=== PATIENT | female | born 1935 | race Caucasian/White ===

== ENCOUNTER 2021-10-23 18:11 | Emergency (ER) | payer MEDICARE, BC ==
--- NOTE | 2021-10-23 18:08 | CT ---
PROCEDURE INFORMATION: Exam: CT Head Without Contrast Exam date and time: 10/23/2021 6:00 PM Age: 86 years old Clinical indication: Speech disturbance; Slurred speech; Additional info: Stroke code: Slurred speech, recurrent falls TECHNIQUE: Imaging protocol: Computed tomography of the head without contrast. Radiation optimization: All CT scans at this facility use at least one of these dose optimization techniques: automated exposure control; mA and/or kV adjustment per patient size (includes targeted exams where dose is matched to clinical indication); or iterative reconstruction. Other technique: STROKE PROTOCOL was implemented. COMPARISON: CT HEAD 07/31/2007 2:24 PM FINDINGS: Brain: Age-related atrophy and chronic white matter ischemic changes, with no evidence of an acute intracranial abnormality. No hemorrhage, mass effect or midline shift. A 1 cm nodule is noted along the anterior falx on the left and may represent a meningioma. Further evaluation with MRI of the brain is recommended. Cerebral ventricles: No ventriculomegaly. Paranasal sinuses: Visualized sinuses are unremarkable. No fluid levels. Mastoid air cells: Visualized mastoid air cells are well aerated. Bones/joints: No acute fracture. Soft tissues: No acute changes IMPRESSION: 1. Age-related atrophy and chronic white matter ischemic changes, with no evidence of an acute intracranial abnormality. 2. No hemorrhage, mass effect or midline shift. 3. A 1 cm nodule is noted along the anterior falx on the left and may represent a meningioma. Further evaluation with MRI of the brain is recommended. ASSESSMENT: ASPECTS ([place] Stroke Program Early CT Score) is 10.
[2021-10-23] MEDS ORDERED: Sodium Chloride 0.9% 10 ML Syringe FLUSH PRN (18:13)
[2021-10-23 18:31] VITALS: BP 226/109; PULSE 90
--- NOTE | 2021-10-23 18:33 | CR ---
PROCEDURE INFORMATION: Exam: XR Chest Exam date and time: 10/23/2021 6:23 PM Age: 86 years old Clinical indication: Other: Possible aspiration; Additional info: CVA, poss. Aspiration TECHNIQUE: Imaging protocol: XR of the chest. Views: 1 view. COMPARISON: No relevant prior studies available. FINDINGS: Lungs: Bilateral hyperinflation is present. No focal pneumonia or pneumothorax. Pleural spaces: There are no pleural effusions present. Heart/Mediastinum: Unremarkable. No cardiomegaly. Vasculature: The vasculature demonstrates diffuse mild atherosclerotic calcification. Bones/joints: The thoracic spine demonstrates mild degenerative changes at multiple levels. IMPRESSION: 1. Bilateral hyperinflation is present. 2. No focal pneumonia or pneumothorax.
[2021-10-23 18:44] LABS: CHLORIDE,CL 99 mmol/L (98-107); SODIUM,NA 137 mmol/L (136-145)
[2021-10-23 18:45] LABS: PTT,PARTIAL THROMBOPLSTIN TIME 23.9 SEC (22.0-34.0)
--- NOTE | 2021-10-23 19:07 | CT ---
PROCEDURE INFORMATION: Exam: CT Pelvis Without Contrast; Skeletal Exam date and time: 10/23/2021 6:33 PM Age: 86 years old Clinical indication: Hip pain and pelvic pain; Right hip; Additional info: Fall, pain overlying RT pubic rami TECHNIQUE: Imaging protocol: Computed tomography images of the pelvis without contrast. Exam focused on the skeletal structures. Radiation optimization: All CT scans at this facility use at least one of these dose optimization techniques: automated exposure control; mA and/or kV adjustment per patient size (includes targeted exams where dose is matched to clinical indication); or iterative reconstruction. COMPARISON: No relevant prior studies available. FINDINGS: Bones/joints: Angulated comminuted right femoral neck fracture. Old inferior sacral fracture Soft tissues: Unremarkable. IMPRESSION: Right hip fracture
--- NOTE | 2021-10-23 19:18 | EDM.PDOC ---
Scribed by Krista Duffy 10/23/21 1828 for Yannick Alvarado MD <Yannick Alvarado - Last Filed: 10/23/21 19:09> ED HPI GENERAL MEDICAL PROBLEM - General Chief Complaint: Neuro Symptoms/Deficits Stated Complaint: AMBULANCE/ STROKE Time Seen by Provider: 10/23/21 18:11 Source of Information: Reports: Patient, EMS, EMS Notes Reviewed, RN, RN Notes Reviewed - History of Present Illness INITIAL COMMENTS - FREE TEXT/NARRATIVE: Patient arrives to ED by [facility] with EMS calling "Stroke Code" due to slurred speech. Pt states that she felt well today, but slipped and missed a step and fell this morning. She got herself back into her apartment, but now cannot bear wt on the right leg due to groin pain. Pt states the only slurred speech she had is that she cannot seem to say, "Kathy" correctly. Denies headache, chest pain, aphasia, difficulty swallowing, blurred vision, or motor weakness. Onset: Today Duration: Constant Quality: Reports: Ache Severity: Moderate Improves with: Reports: Immobilization Worsens with: Reports: Movement Associated Symptoms: Reports: No Other Symptoms Right Upper Leg Pain Score (Numeric/FACES): 0 - Related Data Allergies Allergy/AdvReac Type Severity Reaction Status Date / Time No Known Allergies Allergy Verified 10/23/21 18:17 Home Meds: Home Meds Aspirin 1 tab PO DAILY 01/02/15 [History] Estrogens, Conjugated [Premarin] 1 tab PO DAILY 01/02/15 [History] Hydrochlorothiazide/Lisinopril [Lisinopril-HCTZ 20-25 MG] 1 tab PO DAILY 01/02/15 [History] LORazepam [Ativan] 1 tab PO DAILY PRN 01/02/15 [History] Levothyroxine Sodium 1 tab PO DAILY 01/02/15 [History] Past Medical History HEENT History: Reports: Impaired Vision Cardiovascular History: Reports: Hypertension Neurological History: Reports: TIA Psychiatric History: Reports: Anxiety Endocrine/Metabolic History: Reports: Hypothyroidism Social & Family History - Family History Family Medical History: No Pertinent Family History - Living Situation & Occupation Living situation: Reports: , Alone Occupation: Retired ED ROS GENERAL - Review of Systems Review Of Systems: Comprehensive ROS is negative, except as noted in HPI. ED EXAM, NEURO - Physical Exam Exam: See Below Exam Limited By: No Limitations General Appearance: Alert, WD/WN, No Apparent Distress Eye Exam: Bilateral Eye: EOMI, Normal Inspection, PERRL Ears: Normal External Exam, Hearing Grossly Normal Nose: Normal Inspection, Normal Mucosa, No Blood Throat/Mouth: Normal Inspection, Normal Lips, Normal Teeth, Normal Gums, Normal Oropharynx, Normal Voice, No Airway Compromise Head Exam: Atraumatic, Normocephalic Neck: Normal Inspection, Supple, Non-Tender, Full Range of Motion Respiratory/Chest: No Respiratory Distress, Lungs Clear, Normal Breath Sounds, No Accessory Muscle Use, Chest Non-Tender Cardiovascular: Normal Peripheral Pulses, Regular Rate, Rhythm GI/Abdominal: Normal Bowel Sounds, Soft, Non-Tender Neurological: Alert, Normal Dorsiflexion, CN II-XII Intact, Normal Plantar Flexion, No Motor/Sensory Deficits, Oriented x 3 Back Exam: Normal Inspection Extremities: Normal Capillary Refill, Limited Range of Motion (Rt hip with pain to palpation overlying Rt pubic rami region). No: Joint Swelling, Increased Warmth, Redness Psychiatric: Normal Mood Skin Exam: Warm, Dry, Intact, Normal Color, No Rash #1 Interpretation EKG Date: 10/23/21 Time: 18:28 Rhythm: Other (SR) Rate (Beats/Min): 86 [place]: LAD-Left Beth[place] Deviation P-Wave: Present QRS: Other (Old anterior and inferior Q waves) ST-T: Normal QT: Normal Comparison: NA - No Prior EKG Course - Re-Assessments/Exams Free Text/Narrative Re-Assessment/Exam: 10/23/21 19:18 Care of pt transferred to Shirin Mccarthy at shift change. Departure - Departure Disposition: DC/Tfer to [facility] 02 Clinical Impression: Fall (on) (from) other stairs and steps, initial encounter, Hypokalemia Fractured femoral neck Qualifiers: Encounter type: initial encounter Fracture type: closed Laterality: right Qualified Code(s): S72.001A - Fracture of unspecified part of neck of right femur, initial encounter for closed fracture - Discharge Information Forms: ED Department Discharge <Winsome Otero - Last Filed: 10/23/21 20:38> ED HPI GENERAL MEDICAL PROBLEM - History of Present Illness INITIAL COMMENTS - FREE TEXT/NARRATIVE: Patient reports fall at 4 pm today just prior to evening news . Was going down to get mail and missed last step fell landing more on left side. States able to get up and walk back up the 8 stairs to her apartment but had increasing pain. Denied any loss of consciousness or other injury with fall. ED EXAM, NEURO - Physical Exam Extremities: Other (right groin pain with movement) Course - Vital Signs Last Recorded V/S: Last Vital Signs Temp 97.7 F 10/23/21 18:11 Pulse 90 10/23/21 18:11 Resp 16 10/23/21 18:11 BP 226/109 H 10/23/21 18:11 Pulse Ox 96 10/23/21 18:11 - Orders/Labs/Meds Orders: Active Orders 24 hr Category Date Time Status Blood Glucose Check, Bedside [RC] ONETIME Care 10/23/21 18:12 Active NIH Stroke Scale [RC] ASDIRECTED Care 10/23/21 18:11 Active Peripheral IV Care [RC] . DIRECTED Care 10/23/21 18:13 Active Potassium Chloride [KCL in Water 20 MEQ/100 ML] 20 meq Med 10/23/21 19:39 Active Premix Bag 1 bag IV ONETIME Sodium Chloride 0.9% [Normal Saline] 1,000 ml Med 10/23/21 19:39 Active IV .BOLUS Sodium Chloride 0.9% [Saline Flush] Med 10/23/21 18:13 Active 10 ml FLUSH ASDIRECTED PRN Peripheral IV Insertion Adult [OM.PC] Stat Oth 10/23/21 18:13 Ordered Code Status [Resuscitation Status] Stat Resus Stat 10/23/21 20:07 Ordered Medication Orders Potassium Chloride 20 meq/ (Premix) 100 mls @ 50 mls/hr IV ONETIME ONE Stop: 10/23/21 21:38 Last Admin: 10/23/21 19:53 Dose: 50 mls/hr Documented by: BALLNOR Sodium Chloride (Normal Saline) 1,000 mls @ 50 mls/hr IV .BOLUS ONE Stop: 10/24/21 15:38 Last Admin: 10/23/21 19:53 Dose: 50 mls/hr Documented by: BALLNOR Sodium Chloride (Sodium Chloride 0.9% 10 Ml Syringe) 10 ml FLUSH ASDIRECTED PRN PRN Reason: Keep Vein Open Last Admin: 10/23/21 18:11 Dose: 10 ml Documented by: PAULINA Labs: Laboratory Tests 10/23/21 10/23/21 10/23/21 Range/Units 18:12 18:12 18:12 WBC 13.5 H (5.0-10.0) 10^3/uL RBC 4.45 (4.2-5.4) 10^6/uL Hgb 11.9 L (12.0-16.0) g/dL Hct 37.2 (37.0-47.0) % MCV 83.6 (80-100) fL MCH 26.7 L (27.0-34.0) pg MCHC 32.0 L (33.0-35.0) g/dL Plt Count 286 (150-450) 10^3/uL Neut % (Auto) 90.7 H (42.2-75.2) % Lymph % (Auto) 4.6 L (20.5-50.1) % Starr % (Auto) 4.4 (2-8) % Eos % (Auto) 0.2 L (1.0-3.0) % Baso % (Auto) 0.1 (0.0-1.0) % PT 10.4 (9.0-12.0) SEC INR 1.0 (0.9-1.2) APTT 23.9 (22.0-34.0) SEC Sodium 137 (136-145) mmol/L Potassium 3.0 L (3.5-5.1) mmol/L Chloride 99 (98-107) mmol/L Carbon Dioxide 26 (21-32) mmol/L Anion Gap 15.0 H (7-13) mEq/L BUN 21 H (7-18) mg/dL Creatinine 1.04 H (0.55-1.02) mg/dL Est Cr Clr Drug Dosing TNP Estimated GFR (MDRD) 50 BUN/Creatinine Ratio 20.2 (No establ ref range) Glucose 118 H (70-99) mg/dL POC Glucose (70-99) mg/dL Lactic Acid (0.4-2.0) mmol/L Calcium 8.9 (8.5-10.1) mg/dL Magnesium 1.9 (1.8-2.4) mg/dL Total Bilirubin 0.7 (0.2-1.0) mg/dL AST 25 (15-37) U/L ALT 30 (14-59) U/L Alkaline Phosphatase 111 (46-116) U/L Troponin I High Sens 72 H* (<=51) pg/mL C-Reactive Protein < 0.2 (0.0-0.9) mg/dL Total Protein 7.7 (6.4-8.2) g/dL Albumin 3.6 (3.4-5.0) g/dL Globulin 4.1 Albumin/Globulin Ratio 0.9 Urine Color (YELLOW) Urine Appearance (CLEAR) Urine pH (5.0-9.0) Ur Specific [place] (1.005-1.030) Urine Protein (NEGATIVE) Urine Glucose (UA) (NEGATIVE) Urine Ketones (NEGATIVE) Urine Occult Blood (NEGATIVE) Urine Nitrite (NEGATIVE) Urine Bilirubin (NEGATIVE) Urine Urobilinogen (0.2-1.0) mg/dL Ur Leukocyte Esterase (NEGATIVE) U Hyaline Cast (Auto) Urine RBC (0-5) /HPF Urine WBC (0-5/HPF) /HPF Ur Epithelial Cells (NOT SEEN) /HPF Urine Bacteria (0-FEW/HPF) /HPF Urine Mucus (NOT SEEN) /LPF Urine Opiates Screen (NEGATIVE) Ur Oxycodone Screen (NEGATIVE) Urine Methadone Screen (NEGATIVE) Ur Barbiturates Screen (NEGATIVE) U Tricyclic Antidepress (NEGATIVE) Ur Phencyclidine Scrn (NEGATIVE) Ur Amphetamine Screen (NEGATIVE) U Methamphetamines Scrn (NEGATIVE) Urine MDMA Screen (NEGATIVE) U Benzodiazepines Scrn (NEGATIVE) Urine Cocaine Screen (NEGATIVE) U Marijuana (THC) Screen (NEGATIVE) Ethyl Alcohol < 3 (0) mg/dL SARS-CoV-2 RNA (LEILANI) (NEGATIVE) 10/23/21 10/23/21 10/23/21 Range/Units 18:12 18:50 19:00 WBC (5.0-10.0) 10^3/uL RBC (4.2-5.4) 10^6/uL Hgb (12.0-16.0) g/dL Hct (37.0-47.0) % MCV (80-100) fL MCH (27.0-34.0) pg MCHC (33.0-35.0) g/dL Plt Count (150-450) 10^3/uL Neut % (Auto) (42.2-75.2) % Lymph % (Auto) (20.5-50.1) % Starr % (Auto) (2-8) % Eos % (Auto) (1.0-3.0) % Baso % (Auto) (0.0-1.0) % PT (9.0-12.0) SEC INR (0.9-1.2) APTT (22.0-34.0) SEC Sodium (136-145) mmol/L Potassium (3.5-5.1) mmol/L Chloride (98-107) mmol/L Carbon Dioxide (21-32) mmol/L Anion Gap (7-13) mEq/L BUN (7-18) mg/dL Creatinine (0.55-1.02) mg/dL Est Cr Clr Drug Dosing Estimated GFR (MDRD) BUN/Creatinine Ratio (No establ ref range) Glucose (70-99) mg/dL POC Glucose 118 H (70-99) mg/dL Lactic Acid 0.7 (0.4-2.0) mmol/L Calcium (8.5-10.1) mg/dL Magnesium (1.8-2.4) mg/dL Total Bilirubin (0.2-1.0) mg/dL AST (15-37) U/L ALT (14-59) U/L Alkaline Phosphatase (46-116) U/L Troponin I High Sens (<=51) pg/mL C-Reactive Protein (0.0-0.9) mg/dL Total Protein (6.4-8.2) g/dL Albumin (3.4-5.0) g/dL Globulin Albumin/Globulin Ratio Urine Color (YELLOW) Urine Appearance (CLEAR) Urine pH (5.0-9.0) Ur Specific [place] (1.005-1.030) Urine Protein (NEGATIVE) Urine Glucose (UA) (NEGATIVE) Urine Ketones (NEGATIVE) Urine Occult Blood (NEGATIVE) Urine Nitrite (NEGATIVE) Urine Bilirubin (NEGATIVE) Urine Urobilinogen (0.2-1.0) mg/dL Ur Leukocyte Esterase (NEGATIVE) U Hyaline Cast (Auto) Urine RBC (0-5) /HPF Urine WBC (0-5/HPF) /HPF Ur Epithelial Cells (NOT SEEN) /HPF Urine Bacteria (0-FEW/HPF) /HPF Urine Mucus (NOT SEEN) /LPF Urine Opiates Screen Negative (NEGATIVE) Ur Oxycodone Screen Negative (NEGATIVE) Urine Methadone Screen Negative (NEGATIVE) Ur Barbiturates Screen Negative (NEGATIVE) U Tricyclic Antidepress Negative (NEGATIVE) Ur Phencyclidine Scrn Negative (NEGATIVE) Ur Amphetamine Screen Negative (NEGATIVE) U Methamphetamines Scrn Negative (NEGATIVE) Urine MDMA Screen Negative (NEGATIVE) U Benzodiazepines Scrn Positive H (NEGATIVE) Urine Cocaine Screen Negative (NEGATIVE) U Marijuana (THC) Screen Negative (NEGATIVE) Ethyl Alcohol (0) mg/dL SARS-CoV-2 RNA (LEILANI) (NEGATIVE) 10/23/21 10/23/21 Range/Units 19:00 19:16 WBC (5.0-10.0) 10^3/uL RBC (4.2-5.4) 10^6/uL Hgb (12.0-16.0) g/dL Hct (37.0-47.0) % MCV (80-100) fL MCH (27.0-34.0) pg MCHC (33.0-35.0) g/dL Plt Count (150-450) 10^3/uL Neut % (Auto) (42.2-75.2) % Lymph % (Auto) (20.5-50.1) % Starr % (Auto) (2-8) % Eos % (Auto) (1.0-3.0) % Baso % (Auto) (0.0-1.0) % PT (9.0-12.0) SEC INR (0.9-1.2) APTT (22.0-34.0) SEC Sodium (136-145) mmol/L Potassium (3.5-5.1) mmol/L Chloride (98-107) mmol/L Carbon Dioxide (21-32) mmol/L Anion Gap (7-13) mEq/L BUN (7-18) mg/dL Creatinine (0.55-1.02) mg/dL Est Cr Clr Drug Dosing Estimated GFR (MDRD) BUN/Creatinine Ratio (No establ ref range) Glucose (70-99) mg/dL POC Glucose (70-99) mg/dL Lactic Acid (0.4-2.0) mmol/L Calcium (8.5-10.1) mg/dL Magnesium (1.8-2.4) mg/dL Total Bilirubin (0.2-1.0) mg/dL AST (15-37) U/L ALT (14-59) U/L Alkaline Phosphatase (46-116) U/L Troponin I High Sens (<=51) pg/mL C-Reactive Protein (0.0-0.9) mg/dL Total Protein (6.4-8.2) g/dL Albumin (3.4-5.0) g/dL Globulin Albumin/Globulin Ratio Urine Color Yellow (YELLOW) Urine Appearance Clear (CLEAR) Urine pH 7.5 (5.0-9.0) Ur Specific [place] 1.020 (1.005-1.030) Urine Protein 100 H (NEGATIVE) Urine Glucose (UA) Negative (NEGATIVE) Urine Ketones Negative (NEGATIVE) Urine Occult Blood Trace-intact H (NEGATIVE) Urine Nitrite Negative (NEGATIVE) Urine Bilirubin Negative (NEGATIVE) Urine Urobilinogen 0.2 (0.2-1.0) mg/dL Ur Leukocyte Esterase Negative (NEGATIVE) U Hyaline Cast (Auto) Rare Urine RBC 10-20 H (0-5) /HPF Urine WBC 0-5 (0-5/HPF) /HPF Ur Epithelial Cells Rare (NOT SEEN) /HPF Urine Bacteria Rare (0-FEW/HPF) /HPF Urine Mucus Rare (NOT SEEN) /LPF Urine Opiates Screen (NEGATIVE) Ur Oxycodone Screen (NEGATIVE) Urine Methadone Screen (NEGATIVE) Ur Barbiturates Screen (NEGATIVE) U Tricyclic Antidepress (NEGATIVE) Ur Phencyclidine Scrn (NEGATIVE) Ur Amphetamine Screen (NEGATIVE) U Methamphetamines Scrn (NEGATIVE) Urine MDMA Screen (NEGATIVE) U Benzodiazepines Scrn (NEGATIVE) Urine Cocaine Screen (NEGATIVE) U Marijuana (THC) Screen (NEGATIVE) Ethyl Alcohol (0) mg/dL SARS-CoV-2 RNA (LEILANI) Negative (NEGATIVE) Meds: Medications Generic Name Dose Route Start Last Admin Trade Name Freq PRN Reason Stop Dose Admin Potassium Chloride 20 meq/ 100 mls @ 50 mls/hr 10/23/21 19:39 10/23/21 19:53 Premix IV 10/23/21 21:38 50 mls/hr ONETIME ONE Administration Sodium Chloride 1,000 mls @ 50 mls/hr 10/23/21 19:39 10/23/21 19:53 Normal Saline IV 10/24/21 15:38 50 mls/hr .BOLUS ONE Administration Sodium Chloride 10 ml 10/23/21 18:13 10/23/21 18:11 Sodium Chloride 0.9% 10 Ml Syringe FLUSH 10 ml ASDIRECTED PRN Administration Keep Vein Open Discontinued Medications Generic Name Dose Route Start Last Admin Trade Name Josi PRN Reason Stop Dose Admin Fentanyl 25 mcg 10/23/21 19:38 10/23/21 19:51 Fentanyl 100 Mcg/2 Ml Sdv IVPUSH 10/23/21 19:39 25 mcg ONETIME ONE Administration Protocol Ondansetron HCl 4 mg 10/23/21 19:38 10/23/21 19:53 Ondansetron 4 Mg/2 Ml Sdv IVPUSH 10/23/21 19:39 4 mg ONETIME ONE Administration - Re-Assessments/Exams Free Text/Narrative Re-Assessment/Exam: 10/23/21 20:08 CT positive right femoral neck fracture. TC Dr Poncho Bloom, accepting patient. Tx Via LRAS. Patient aware of results. TC updating son Jay. VSS. Code status discussed with both son and patient. Desire DNR DNI. Departure - Departure Time of Disposition: 20:37 Condition: Fair - Discharge Information *PRESCRIPTION DRUG MONITORING PROGRAM REVIEWED*: No Sepsis Event Note (ED) - Focused Exam Vital Signs: Vital Signs Temp Pulse Resp BP Pulse Ox 10/23/21 18:11 97.7 F 90 16 226/109 H 96 - My Orders Last 24 Hours: My Active Orders 10/23/21 19:39 Potassium Chloride [KCL in Water 20 MEQ/100 ML] 20 meq Premix Bag 1 bag IV ONETIME Sodium Chloride 0.9% [Normal Saline] 1,000 ml IV .BOLUS 10/23/21 20:07 Code Status [Resuscitation Status] Stat - Assessment/Plan Last 24 Hours: My Active Orders 10/23/21 19:39 Potassium Chloride [KCL in Water 20 MEQ/100 ML] 20 meq Premix Bag 1 bag IV ONETIME Sodium Chloride 0.9% [Normal Saline] 1,000 ml IV .BOLUS 10/23/21 20:07 Code Status [Resuscitation Status] Stat I have read and agree with the documentation that has been completed regarding this visit. By signing this record, I attest that the documentation was completed in my physical presence and is an accurate record of the encounter.
[2021-10-23 19:23] LABS: AMPHETAMINES,URINE NEGATIVE (NEGATIVE); BARBITURATES,URINE NEGATIVE (NEGATIVE); BENZODIAZEPINE,URINE POSITIVE (NEGATIVE); MDMA (ECSTASY), URINE NEGATIVE (NEGATIVE); METHADONE,URINE NEGATIVE (NEGATIVE); METHAMPHETAMINES,URINE NEGATIVE (NEGATIVE); OPIATES,URINE NEGATIVE (NEGATIVE); OXYCODONE,URINE NEGATIVE (NEGATIVE); PHENCYCLIDINE,URINE NEGATIVE (NEGATIVE); TCA,URINE NEGATIVE (NEGATIVE)
[2021-10-23] MEDS ORDERED: fentaNYL 100 MCG/2 ML SDV IVPUSH ONE (19:38)
[2021-10-23] MEDS ORDERED: Ondansetron 4 MG/2 ML SDV IVPUSH ONE (19:38)
[2021-10-23] MEDS ORDERED: Potassium Chloride 20 MEQ in Premix Bag 1 BAG IV ONE (19:39)
[2021-10-23] MEDS ORDERED: Sodium Chloride 0.9% 1,000 ML IV ONE (19:39)
== END 2021-10-23 20:37 ==
LOC: DL.ED 18:11
DX: S72.001A Fracture of unspecified part of neck of right femur, initial encounter for closed fracture (principal); E87.6 Hypokalemia; I10 Essential (primary) hypertension; E03.9 Hypothyroidism, unspecified; Z79.82 Long term (current) use of aspirin; Z79.899 Other long term (current) drug therapy; Z20.822 Contact with and (suspected) exposure to COVID-19; W10.8XXA Fall (on) (from) other stairs and steps, initial encounter
CPT/HCPCS: 36415; 51702; 70450; 71045; 72192; 80053; 80305-QW; 80307; 81001; 82947; 83605; 83735; 84484; 85025; 85610; 85730; 86140; 93005; 96365; 96375; 99285-25; J2405; J3010; J3480; J7030; U0002

== ENCOUNTER 2022-02-28 07:30 | Emergency (ER) | payer MEDICARE, BC ==
[2022-02-28 08:42] VITALS: BP 187/83; PULSE 68
[2022-02-28] MEDS: hydrALAZINE 20 MG/ML SDV ONE ×2 (08:54→08:57)
[2022-02-28] MEDS ORDERED: hydrALAZINE 20 MG/ML SDV IVPUSH ONE (08:55)
[2022-02-28 08:58] LABS: ANION GAP 14.3 mEq/L (7-13); CHLORIDE,CL 99 mmol/L (98-107); SODIUM,NA 136 mmol/L (136-145)
[2022-02-28 09:41] LABS: AMPHETAMINES,URINE NEGATIVE (NEGATIVE); BARBITURATES,URINE NEGATIVE (NEGATIVE); BENZODIAZEPINE,URINE POSITIVE (NEGATIVE); MDMA (ECSTASY), URINE NEGATIVE (NEGATIVE); METHADONE,URINE NEGATIVE (NEGATIVE); METHAMPHETAMINES,URINE NEGATIVE (NEGATIVE); OPIATES,URINE NEGATIVE (NEGATIVE); OXYCODONE,URINE NEGATIVE (NEGATIVE); PHENCYCLIDINE,URINE NEGATIVE (NEGATIVE); TCA,URINE NEGATIVE (NEGATIVE)
[2022-02-28] MEDS ORDERED: cefTRIAXone 1 GM in Sodium Chloride 0.9% 50 ML IV ONE (09:43)
== END 2022-02-28 11:19 ==
LOC: DL.ED 07:30
DX: N30.01 Acute cystitis with hematuria (principal); R47.01 Aphasia; R41.0 Disorientation, unspecified; I10 Essential (primary) hypertension; E03.9 Hypothyroidism, unspecified; Z86.73 Personal history of transient ischemic attack (TIA), and cerebral infarction without residual deficits; Z79.82 Long term (current) use of aspirin; Z79.899 Other long term (current) drug therapy
CPT/HCPCS: 36415; 70450; 80053; 80305-QW; 80307; 81001; 83605; 83735; 84443; 84484; 85025; 86140; 87086; 87088; 87186; 93005; 93010; 96365; 96375; 99285; 99285-25; J0360; J0696

== ENCOUNTER 2022-04-04 12:56 | Emergency (ER) | payer MEDICARE, BC ==
[2022-04-04 14:17] LABS: ANION GAP 15.9 mEq/L (7-13); CHLORIDE,CL 101 mmol/L (98-107); SODIUM,NA 140 mmol/L (136-145)
== END 2022-04-04 14:44 | disposition home or self-care (01) ==
LOC: DL.ED 12:56
DX: R55 Syncope and collapse (principal); E86.0 Dehydration; E03.9 Hypothyroidism, unspecified; I10 Essential (primary) hypertension; Z86.73 Personal history of transient ischemic attack (TIA), and cerebral infarction without residual deficits; Z79.82 Long term (current) use of aspirin; Z79.899 Other long term (current) drug therapy
CPT/HCPCS: 36415; 71045; 80053; 83605; 84484; 85025; 87040; 93005; 99284-25

== ENCOUNTER 2022-05-02 17:58 | Observation (INO) | payer MEDICARE, BC ==
[2022-05-02 19:11] LABS: ANION GAP 13.9 mEq/L (7-13)
[2022-05-02] MEDS ORDERED: HYDROmorphone 0.5 MG/0.5 ML Syringe IVPUSH PRN (23:23)
[2022-05-02] MEDS ORDERED: Sodium Chloride 0.9% 10 ML Syringe FLUSH PRN (23:23)
[2022-05-02] MEDS ORDERED: Bisacodyl 5 MG Tab PO PRN (23:23)
[2022-05-02] MEDS ORDERED: Albuterol/Ipratropium 3.0-0.5 MG/3 ML Neb Soln NEB PRN (23:23)
[2022-05-02] MEDS ORDERED: Docusate Sodium 100 MG Cap PO PRN (23:23)
[2022-05-02] MEDS ORDERED: Polyethylene Glycol 3350 Powder 17 GM Packet PO PRN (23:23)
[2022-05-02] MEDS ORDERED: Acetaminophen/HYDROcodone 325-5 MG Tab PO PRN (23:23)
[2022-05-02] MEDS ORDERED: Ondansetron 4 MG/2 ML SDV IVPUSH PRN (23:23)
[2022-05-02] MEDS ORDERED: Melatonin 3 MG Tab PO PRN (23:26)
[2022-05-02] MEDS ORDERED: LORazepam 0.5 MG Tab PO PRN (23:26)
[2022-05-02] MEDS ORDERED: LORazepam 0.5 MG Tab PO ONE (23:29)
[2022-05-03] MEDS ORDERED: LORazepam 2 MG/ML SDV IVPUSH ONE (00:04)
[2022-05-03] MEDS ORDERED: Metoprolol Tartrate 5 MG/5 ML SDV IVPUSH PRN (00:07)
[2022-05-03] MEDS ORDERED: Acetaminophen/Butalbital/Caffeine 325-50-40 MG Tab PO PRN (00:07)
[2022-05-03] MEDS ORDERED: hydrALAZINE 20 MG/ML SDV IVPUSH PRN (00:07)
[2022-05-03] MEDS ORDERED: Sodium Chloride 0.9% 1,000 ML IV SCH (00:15)
[2022-05-03] MEDS: Acetaminophen 325 MG Tab PO PRN ×2 (03:38→07:55)
[2022-05-03] MEDS ORDERED: Pantoprazole 40 MG Tab.CR PO SCH (06:00)
[2022-05-03 06:52] LABS: ANION GAP 12.1 mEq/L (7-13)
[2022-05-03] MEDS ORDERED: Potassium Chloride 10 MEQ Tab.ER PO ONE (08:26)
[2022-05-03] MEDS ORDERED: Sodium Chloride 0.9% 10 ML Syringe FLUSH SCH (09:00)
[2022-05-03] MEDS ORDERED: amLODIPine 5 MG Tab PO SCH (09:00)
[2022-05-03] MEDS ORDERED: Levothyroxine 50 MCG Tab PO SCH (09:00)
[2022-05-03] MEDS ORDERED: Aspirin 325 MG Tab PO SCH (09:00)
[2022-05-03] MEDS ORDERED: Lisinopril 20 MG Tab PO SCH (09:45)
[2022-05-03 11:30] VITALS: BP 133/93; PULSE 63
[2022-05-04] MEDS ORDERED: Hydrochlorothiazide 25 MG Tab PO SCH (09:00)
== END 2022-05-03 13:17 | disposition home or self-care (01) ==
LOC: DL.ED 17:58 → DL.MS 22:32
PROVIDERS: ADMIT Internal Medicine; ATTEND Internal Medicine
DX: R47.81 Slurred speech (principal); I10 Essential (primary) hypertension; H54.7 Unspecified visual loss; E03.9 Hypothyroidism, unspecified; E78.5 Hyperlipidemia, unspecified; F41.0 Panic disorder [episodic paroxysmal anxiety]; E86.0 Dehydration; G47.00 Insomnia, unspecified; D64.9 Anemia, unspecified; E87.1 Hypo-osmolality and hyponatremia; E87.8 Other disorders of electrolyte and fluid balance, not elsewhere classified; N17.9 Acute kidney failure, unspecified; R73.9 Hyperglycemia, unspecified; Z66 Do not resuscitate; Z86.73 Personal history of transient ischemic attack (TIA), and cerebral infarction without residual deficits; Z79.899 Other long term (current) drug therapy; Z79.890 Hormone replacement therapy; Z79.82 Long term (current) use of aspirin; Z20.822 Contact with and (suspected) exposure to COVID-19
CPT/HCPCS: 36415; 70450; 80048; 80053; 80061; 83735; 84484; 85025; 93005; 93880; 96374; 96375; 97161-GP; 97165-GO; A9270-GY; G0378; J0360; J2060; J7030; U0002

== ENCOUNTER 2023-02-25 09:03 | Emergency (ER) | payer MEDICARE, BC ==
[2023-02-25] MEDS ORDERED: Sodium Chloride 0.9% 10 ML Syringe FLUSH PRN (09:04)
[2023-02-25 09:26] VITALS: BP 155/69; PULSE 43
[2023-02-25 09:45] LABS: ANION GAP 15.1 mEq/L (7-13)
[2023-02-25] MEDS ORDERED: Sodium Chloride 0.9% 500 ML IV SCH (10:15)
== END 2023-02-25 10:50 | disposition home or self-care (01) ==
LOC: DL.ED 09:03
DX: R00.1 Bradycardia, unspecified (principal); T50.905A Adverse effect of unspecified drugs, medicaments and biological substances, initial encounter; E87.1 Hypo-osmolality and hyponatremia; I10 Essential (primary) hypertension; E03.9 Hypothyroidism, unspecified; Z86.73 Personal history of transient ischemic attack (TIA), and cerebral infarction without residual deficits; Z79.82 Long term (current) use of aspirin; Z79.899 Other long term (current) drug therapy
CPT/HCPCS: 36415; 71045; 80053; 82150; 82947; 83605; 83690; 83880; 84484; 85025; 93005; 93010; 99284; J7040; J3490

== ENCOUNTER 2023-03-20 11:45 | Emergency (ER) | payer MEDICARE, BC ==
[2023-03-20] MEDS ORDERED: Sodium Chloride 0.9% 10 ML Syringe FLUSH PRN (11:49)
[2023-03-20 12:24] LABS: BASOPHILS PERCENT AUTO 0.3 % (0.0-1.0); EOSINOPHILS PERCENT AUTO 1.4 % (1.0-3.0); HEMATOCRIT 37.3 % (37.0-47.0); HEMOGLOBIN 12.9 g/dL (12.0-16.0); LYMPHOCYTES PERCENT AUTO 8.2 % (20.5-50.1); MEAN CORPUSCULAR HEMOGLOBIN 30.6 pg (27.0-34.0); MEAN CORPUSCULAR HGB CONC 34.6 g/dL (33.0-35.0); MEAN CORPUSCULAR VOLUME 88.6 fL (80-100); MONOCYTES PERCENT AUTO 8.1 % (2-8); PLATELET COUNT,PLT 286 10^3/uL (150-450); RED BLOOD CELL COUNT 4.21 10^6/uL (4.2-5.4)
[2023-03-20 12:25] VITALS: BP 144/65; PULSE 50
[2023-03-20 12:41] LABS: INR 0.9 (0.9-1.2); PROTHROMBIN TIME 9.3 SEC (9.0-12.0); PTT,PARTIAL THROMBOPLSTIN TIME 18.1 SEC (22.0-34.0)
[2023-03-20 13:09] LABS: A/G RATIO 1.1; ALBUMIN 3.8 g/dL (3.4-5.0); ANION GAP 15.1 mEq/L (7-13); BILIRUBIN TOTAL 0.6 mg/dL (0.2-1.0); CALCIUM 8.9 mg/dL (8.5-10.1); CREATININE 1.15 mg/dL (0.55-1.02); EST CRCL DRUG DOSING (CG) 28.64 mL/min; POTASSIUM,K 4.1 mmol/L (3.5-5.1); PROTEIN TOTAL,TP 7.2 g/dL (6.4-8.2)
== END 2023-03-20 13:55 | disposition home or self-care (01) ==
LOC: DL.ED 11:45
DX: R00.1 Bradycardia, unspecified (principal); T44.7X5A Adverse effect of beta-adrenoreceptor antagonists, initial encounter; E03.9 Hypothyroidism, unspecified; I10 Essential (primary) hypertension; Z79.899 Other long term (current) drug therapy
CPT/HCPCS: 36415; 70450; 71045; 80053; 82947; 83735; 84484; 85025; 85610; 85730; 93005; 93010; 99284; 99285; J3490

== ENCOUNTER 2023-09-06 10:06 | Inpatient (IN) | payer MEDICARE, BC ==
[2023-09-06 10:36] LABS: BASOPHILS PERCENT AUTO 0.5 % (0.0-1.0); EOSINOPHILS PERCENT AUTO 1.4 % (1.0-3.0); HEMATOCRIT 34.5 % (37.0-47.0); HEMOGLOBIN 13.2 g/dL (12.0-16.0); LYMPHOCYTES PERCENT AUTO 8.6 % (20.5-50.1); MEAN CORPUSCULAR HGB CONC 38.3 g/dL (33.0-35.0); MEAN CORPUSCULAR VOLUME 88.9 fL (80-100); MONOCYTES PERCENT AUTO 9.1 % (2-8); NEUTROPHILS PERCENT AUTO 80.4 % (42.2-75.2); PLATELET COUNT,PLT 258 10^3/uL (150-450); RED BLOOD CELL COUNT 3.88 10^6/uL (4.2-5.4); WHITE BLOOD CELL COUNT,WBC 5.7 10^3/uL (5.0-10.0)
[2023-09-06 10:56] LABS: ALBUMIN 3.4 g/dL (3.4-5.0); ANION GAP 8.9 mEq/L (7-13); BILIRUBIN TOTAL 0.7 mg/dL (0.2-1.0); BUN/CREATININE RATIO 18.9 (No establ ref range); CALCIUM 9.4 mg/dL (8.5-10.1); CREATININE 1.06 mg/dL (0.55-1.02); EST CRCL DRUG DOSING (CG) 28.46 mL/min; POTASSIUM,K 4.9 mmol/L (3.5-5.1); PROTEIN TOTAL,TP 6.9 g/dL (6.4-8.2)
[2023-09-06] MEDS ORDERED: Sodium Chloride 0.9% 1,000 ML IV ONE (11:15)
[2023-09-06] MEDS ORDERED: Albuterol/Ipratropium 3.0-0.5 MG/3 ML Neb Soln NEB PRN (12:24)
[2023-09-06] MEDS ORDERED: HYDROmorphone 0.5 MG/0.5 ML Syringe IVPUSH PRN (12:24)
[2023-09-06] MEDS ORDERED: Naloxone 2 MG/2 ML Syringe IVPUSH PRN (12:24)
[2023-09-06] MEDS ORDERED: Ondansetron 4 MG/2 ML SDV IVPUSH PRN (12:24)
[2023-09-06] MEDS ORDERED: Magnesium Hydroxide 400 MG/5 ML Susp 30 ML Cup PO PRN (12:24)
[2023-09-06] MEDS ORDERED: Acetaminophen 325 MG Tab PO PRN (12:24)
[2023-09-06] MEDS ORDERED: Sennosides/Docusate Sodium 50-8.6 MG Tab PO PRN (12:24)
[2023-09-06] MEDS ORDERED: Polyethylene Glycol 3350 Powder 17 GM Packet PO PRN (12:24)
[2023-09-06] MEDS ORDERED: Metoprolol Tartrate 5 MG/5 ML SDV IVPUSH PRN (12:28)
[2023-09-06] MEDS ORDERED: hydrALAZINE 20 MG/ML SDV IVPUSH PRN (12:28)
[2023-09-06] MEDS ORDERED: Sodium Chloride 0.9% 1,000 ML IV SCH (12:30)
[2023-09-06 13:04] LABS: T4 FREE 1.5 ng/dL (0.76-1.46); TSH ULTRASENSITIVE 3.31 uIU/mL (0.36-3.74)
[2023-09-06 14:51] LABS: APPEARANCE,URINE SLIGHTLY CLOUDY (CLEAR); BILIRUBIN,URINE NEGATIVE (NEGATIVE); COLOR,URINE YELLOW (YELLOW); GLUCOSE,URINE NEGATIVE (NEGATIVE); KETONES,URINE NEGATIVE (NEGATIVE); LEUKOCYTE ESTERASE,URINE NEGATIVE (NEGATIVE); NITRITE,URINE POSITIVE (NEGATIVE); OCCULT BLOOD,URINE TRACE-INTACT (NEGATIVE); PH,URINE 7.5 (5.0-9.0); PROTEIN,URINE NEGATIVE (NEGATIVE); UROBILINOGEN,URINE 0.2 mg/dL (0.2-1.0)
[2023-09-06 14:55] LABS: BACTERIA,URINE MODERATE /HPF (0-FEW/HPF); EPITHELIAL CELLS,URINE NOT SEEN /HPF (NOT SEEN); RBC,URINE NOT SEEN /HPF (0-5); WBC,URINE 0-5 /HPF (0-5/HPF)
[2023-09-06] MEDS ORDERED: cefTRIAXone 1 GM Vial IVPUSH ONE (20:03)
[2023-09-07] MEDS ORDERED: cefTRIAXone 1 GM Vial IVPUSH ONE (01:30)
[2023-09-07 06:33] LABS: BASOPHILS PERCENT AUTO 0.2 % (0.0-1.0); EOSINOPHILS PERCENT AUTO 2.2 % (1.0-3.0); HEMATOCRIT 34.3 % (37.0-47.0); HEMOGLOBIN 11.4 g/dL (12.0-16.0); LYMPHOCYTES PERCENT AUTO 7.5 % (20.5-50.1); MEAN CORPUSCULAR HEMOGLOBIN 29.5 pg (27.0-34.0); MEAN CORPUSCULAR HGB CONC 33.2 g/dL (33.0-35.0); MEAN CORPUSCULAR VOLUME 88.9 fL (80-100); MONOCYTES PERCENT AUTO 8.3 % (2-8); NEUTROPHILS PERCENT AUTO 81.8 % (42.2-75.2); PLATELET COUNT,PLT 225 10^3/uL (150-450); RED BLOOD CELL COUNT 3.86 10^6/uL (4.2-5.4); WHITE BLOOD CELL COUNT,WBC 5.9 10^3/uL (5.0-10.0)
[2023-09-07 06:58] LABS: ANION GAP 11.1 mEq/L (7-13); BILIRUBIN TOTAL 0.5 mg/dL (0.2-1.0); BUN/CREATININE RATIO 15.2 (No establ ref range); CALCIUM 8.5 mg/dL (8.5-10.1); CREATININE 0.79 mg/dL (0.55-1.02); EST CRCL DRUG DOSING (CG) 34.68 mL/min; MAGNESIUM 1.7 mg/dL (1.8-2.4); POTASSIUM,K 4.1 mmol/L (3.5-5.1); PROTEIN TOTAL,TP 6.5 g/dL (6.4-8.2)
[2023-09-07 07:12] LABS: A/G RATIO 0.86
[2023-09-07] MEDS ORDERED: Magnesium Sulfate/Water 2 GM in Premix Bag 1 BAG IV ONE (09:06)
[2023-09-07 13:50] VITALS: BP 152/80; PULSE 73
[2023-09-07] MEDS ORDERED: cefTRIAXone 1 GM Vial IVPUSH SCH (21:00)
== END 2023-09-07 14:55 | disposition other institution (70) | DRG 918 ==
LOC: DL.ED 10:06 → DL.MS 12:06
PROVIDERS: ADMIT Internal Medicine; ATTEND Internal Medicine
DX: T43.211A Poisoning by selective serotonin and norepinephrine reuptake inhibitors, accidental (unintentional), initial encounter (principal); E87.1 Hypo-osmolality and hyponatremia; N39.0 Urinary tract infection, site not specified; N17.9 Acute kidney failure, unspecified; Z66 Do not resuscitate; I10 Essential (primary) hypertension; E78.5 Hyperlipidemia, unspecified; E03.9 Hypothyroidism, unspecified; M81.0 Age-related osteoporosis without current pathological fracture; F41.0 Panic disorder [episodic paroxysmal anxiety]; G47.00 Insomnia, unspecified; R29.6 Repeated falls; S80.212A Abrasion, left knee, initial encounter; E86.0 Dehydration; H91.90 Unspecified hearing loss, unspecified ear; F41.9 Anxiety disorder, unspecified; W18.30XA Fall on same level, unspecified, initial encounter; Y92.89 Other specified places as the place of occurrence of the external cause; Z79.82 Long term (current) use of aspirin; Z79.899 Other long term (current) drug therapy; Z86.73 Personal history of transient ischemic attack (TIA), and cerebral infarction without residual deficits
CPT/HCPCS: 36415; 70450; 80053; 81001; 82306; 82550; 84439; 84443; 84484; 85025; 93005; 93010; 99284; J7030; 70551; 73560-LT; 80061; 83735; 96360; 99285-25; A9270-GY; J0696; J3475